=== PATIENT | female | born 1975 | race African-American/Black ===

== ENCOUNTER 2021-07-23 22:42 | Emergency (ER) | payer MEDICAID ==
[~2021-07-23] VITALS: Ht 172.7 cm; Wt 100.0 kg
[~2021-07-23 22:42] MED LIST: AMLO5TAB88 PO
[2021-07-24] MEDS ORDERED: ASPIRIN 81MG TABLET PO ONE (01:30)
[2021-07-24 02:00] LABS: CHLORIDE 107 mEq/L (98-107)
[2021-07-24] MEDS ORDERED: ASPIRIN 81MG TABLET PO SCH (02:00)
[2021-07-24 02:11] LABS: BASOPHILS % 0.6 % (0.0-2.0); EOSINOPHILS % 6.3 % (0.0-5.0); HEMATOCRIT. 31.7 % (36.0-48.0); HEMOGLOBIN. 10.2 g/dL (12.0-16.0); LYMPHOCYTES % 33.4 % (20.0-50.0); MEAN CORPUSCULAR HEMOGLOBIN 21.9 pg (28.0-32.0); MEAN CORPUSCULAR VOLUME 67.9 fL (81.0-99.0); MEAN PLATELET VOLUME 10.6 fl (7.4-10.4); MONOCYTES % 10.5 % (2.0-8.0); NEUTROPHILS % 49.2 % (40.0-76.0); RED BLOOD CELL COUNT 4.67 mill/uL (4.2-5.4); RED CELL DISTRIBUTION WIDTH 20.1 % (11.6-14.6)
[2021-07-24 05:08] LABS: PLATELET 84 x1000/uL (130-400); PLATELET ESTIMATE DECREASED
[2021-07-24 05:15] VITALS: BP 102/56
== END 2021-07-24 05:16 | disposition home or self-care (01) ==
LOC: ER 22:42
DX: R53.1 Weakness (principal); M79.18 Myalgia, other site; U09.9 Post COVID-19 condition, unspecified; Z20.822 Contact with and (suspected) exposure to COVID-19; D68.0 Von Willebrand disease; Z99.81 Dependence on supplemental oxygen
CPT/HCPCS: 36415; 71045; 80053; 83605; 83880; 84145; 84484; 85025; 87040; 87426; 87804; 99284; C9803

== ENCOUNTER 2023-10-03 20:17 | Emergency (ER) | payer OTHER ==
[~2023-10-03] VITALS: Ht 172.7 cm; Wt 90.0 kg
[~2023-10-03 20:17] MED LIST changes: +BACL-141 MT; +LIDO700A15 TP
[2023-10-03 20:38] VITALS: TEMP 98.4; O2SAT 100
[2023-10-03] MEDS ORDERED: ONDANSETRON HCL 4MG/2ML INJ IV ONE (21:15)
[2023-10-03 21:33] LABS: BASOPHILS % 0.6 % (0.0-2.0); HEMATOCRIT. 28.8 % (36.0-48.0); HEMOGLOBIN. 9.2 g/dL (12.0-16.0); LYMPHOCYTES % 40.7 % (20.0-50.0); MEAN CORPUSCULAR HEMOGLOBIN 21.6 pg (28.0-32.0); MEAN CORPUSCULAR HGB CONC 31.9 g/dL (31.0-37.0); MEAN CORPUSCULAR VOLUME 67.7 fL (81.0-99.0); MEAN PLATELET VOLUME 8.6 fl (7.4-10.4); NEUTROPHILS % 42.7 % (40.0-76.0); PLATELET 107 x1000/uL (130-400); RED BLOOD CELL COUNT 4.25 mill/uL (4.2-5.4); RED CELL DISTRIBUTION WIDTH 22.3 % (11.6-14.6); WHITE BLOOD COUNT 3.1 x1000/uL (4.5-11.0)
[2023-10-03 21:34] LABS: DIFFERENTIAL COMMENT 1
[2023-10-03 21:41] LABS: CHLORIDE 106 mEq/L (98-107); POTASSIUM 4.5 mEq/L (3.5-5.1); SODIUM 134 mEq/L (136-145)
[2023-10-03 21:42] LABS: CARBON DIOXIDE 24 mEq/L (21-32)
[2023-10-03 21:43] LABS: CALCIUM 8.8 mg/dL (8.7-10.4)
[2023-10-03 21:47] LABS: AMMONIA < 17 uMol/L (<32); CREATININE 0.9 mg/dL (0.6-1.0); GLUCOSE 101 mg/dL (70-105)
[2023-10-03 21:48] LABS: UREA NITROGEN BLOOD 9 mg/dL (9-23)
[2023-10-03 21:49] LABS: ALANINE AMINOTRANSFERASE 65 IU/L (10-49); ALBUMIN 3.5 g/dL (3.2-4.8); ASPARTATE AMINOTRANSFERASE 130 IU/L (<34); BILIRUBIN DIRECT 0.5 mg/dL (<=3.0)
[2023-10-03 21:50] LABS: BILIRUBIN TOTAL 0.9 mg/dL (0.1-1.0); PROTEIN TOTAL 8.3 g/dL (6.0-8.3)
[2023-10-03 21:54] LABS: TROPONIN I HIGH SENSITIVITY < 4 ng/L (3.0-34)
[2023-10-04] MEDS: ONDANSETRON HCL 4MG/2ML INJ IV NR (03:17)
[2023-10-04] MEDS: SODIUM CHLORIDE 0.9% 1,000 ML IV ONE (03:17)
[2023-10-04 05:11] VITALS: BP 113/67; PULSE 81; RESP 16
== END 2023-10-04 05:17 | disposition home or self-care (01) ==
LOC: ER 20:17
DX: R10.11 Right upper quadrant pain (principal); R53.83 Other fatigue; R74.8 Abnormal levels of other serum enzymes; I10 Essential (primary) hypertension; Z90.49 Acquired absence of other specified parts of digestive tract; Z98.890 Other specified postprocedural states
CPT/HCPCS: 36415; 74176; 80048; 80076; 82140; 84484; 85025; 96361; 96374; 99285; J2405; J7030

== ENCOUNTER 2024-03-07 20:33 | Emergency (ER) | payer OTHER ==
[~2024-03-07] VITALS: Ht 172.7 cm; Wt 91.0 kg
[2024-03-07 20:38] VITALS: O2SAT 100
[2024-03-07 20:49] VITALS: BP 116/57; PULSE 87; RESP 20; TEMP 98.6; O2SAT 100
[2024-03-07] MEDS: DEXAMETHASONE 10 MG/ML VIAL PO ONE (22:06)
[2024-03-07 22:24] LABS: BASOPHILS % 0.3 % (0.0-2.0); HEMATOCRIT. 28.4 % (36.0-48.0); HEMOGLOBIN. 8.9 g/dL (12.0-16.0); LYMPHOCYTES % 39.1 % (20.0-50.0); MEAN CORPUSCULAR HEMOGLOBIN 21.3 pg (28.0-32.0); MEAN CORPUSCULAR HGB CONC 31.3 g/dL (31.0-37.0); MONOCYTES % 9.2 % (2.0-8.0); NEUTROPHILS % 47.4 % (40.0-76.0); RED BLOOD CELL COUNT 4.17 mill/uL (4.2-5.4); RED CELL DISTRIBUTION WIDTH 20.8 % (11.6-14.6); WHITE BLOOD COUNT 3.5 x1000/uL (4.5-11.0)
[2024-03-07 22:30] LABS: ADD RBC MORPHOLOGY YES; DIFFERENTIAL COMMENT 1
[2024-03-07 22:33] LABS: CHLORIDE 105 mEq/L (98-107); POTASSIUM 4.5 mEq/L (3.5-5.1); SODIUM 136 mEq/L (136-145)
[2024-03-07 22:34] LABS: CALCIUM 8.9 mg/dL (8.7-10.4); CARBON DIOXIDE 24 mEq/L (21-32)
[2024-03-07 22:39] LABS: GLUCOSE 95 mg/dL (70-105); UREA NITROGEN BLOOD 9 mg/dL (9-23)
[2024-03-07 22:40] LABS: TROPONIN I HIGH SENSITIVITY < 4 ng/L (3.0-34)
[2024-03-07 22:41] LABS: ALANINE AMINOTRANSFERASE 30 IU/L (10-49); ALBUMIN 3.4 g/dL (3.2-4.8); ASPARTATE AMINOTRANSFERASE 59 IU/L (<34); BILIRUBIN TOTAL 0.9 mg/dL (0.1-1.0); PROTEIN TOTAL 7.9 g/dL (6.0-8.3)
[2024-03-07 22:47] LABS: MEAN PLATELET VOLUME 9.9 fl (7.4-10.4); PLATELET 80 x1000/uL (130-400)
[2024-03-07 22:48] LABS: ANISOCYTOSIS 1+; HYPOCHROMASIA 2+; MICROCYTOSIS 3+; PLATELET ESTIMATE DECREASED
[2024-03-07] MEDS ORDERED: ALBU18HF2 IH (23:03)
[2024-03-07] MEDS ORDERED: GUAI-450 MT (23:03)
[2024-03-07] MEDS ORDERED: P50 MT (23:03)
== END 2024-03-08 01:51 | disposition home or self-care (01) ==
LOC: ER 20:33
DX: J20.9 Acute bronchitis, unspecified (principal); K74.60 Unspecified cirrhosis of liver; I10 Essential (primary) hypertension; Z98.890 Other specified postprocedural states; Z79.52 Long term (current) use of systemic steroids
CPT/HCPCS: 99285; 71045; 80053; 85025; 84484; 36415; 93005; J1100

== ENCOUNTER 2024-10-18 22:15 | Emergency (ER) | payer OTHER ==
[~2024-10-18] VITALS: Ht 172.7 cm; Wt 96.0 kg
[~2024-10-18 22:15] MED LIST changes: +ALBU18HF2 IH; +GUAI-450 MT; +LIDO-53 TP; -LIDO700A15 TP; +P50 MT
[2024-10-18 22:41] VITALS: O2SAT 100
[2024-10-18 23:07] VITALS: BP 115/71; PULSE 76; RESP 20; TEMP 37.3; O2SAT 100
[2024-10-18 23:30] LABS: BASOPHILS % 0.4 % (0.0-2.0); EOSINOPHILS % 4.9 % (0.0-5.0); HEMATOCRIT. 28.2 % (36.0-48.0); HEMOGLOBIN. 9.0 g/dL (12.0-16.0); LYMPHOCYTES % 39.9 % (20.0-50.0); MONOCYTES % 7.1 % (2.0-8.0); NEUTROPHILS % 47.7 % (40.0-76.0); RED BLOOD CELL COUNT 4.23 mill/uL (4.2-5.4); RED CELL DISTRIBUTION WIDTH 21.6 % (11.6-14.6)
[2024-10-18 23:46] LABS: CREATININE 0.9 mg/dL (0.6-1.0); UREA NITROGEN BLOOD 12 mg/dL (9-23)
[2024-10-18 23:47] LABS: TROPONIN I HIGH SENSITIVITY < 4 ng/L (3.0-34)
[2024-10-19 00:04] LABS: ADD RBC MORPHOLOGY YES
[2024-10-19] MEDS ORDERED: CEPH500T MT (02:21)
[2024-10-19 04:11] LABS: PLATELET ESTIMATE SLIGHTLY DECREASED
[2024-10-19 04:16] LABS: PLATELET 88 x1000/uL (130-400)
[2024-10-19 04:17] LABS: MEAN PLATELET VOLUME 9.2 fl (7.4-10.4)
== END 2024-10-19 04:44 | disposition left against medical advice (07) ==
LOC: ER 22:15
DX: N93.9 Abnormal uterine and vaginal bleeding, unspecified (principal); I10 Essential (primary) hypertension; Z90.49 Acquired absence of other specified parts of digestive tract; Z98.890 Other specified postprocedural states
CPT/HCPCS: 36415; 76856; 80048; 84484; 85025; 86850; 86900; 93005; 99284